=== PATIENT | female | born 1995 | race Caucasian/White ===

== ENCOUNTER 2017-08-01 18:42 | Emergency (ER) | payer BC, MEDICAID, OTHER ==
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
[2017-08-01 19:36] LABS: CHLORIDE,CL 109 mmol/L (98-110); SODIUM,NA 139 mmol/L (136-146)
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
[2017-08-01 21:22] VITALS: BP 114/72
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
--- NOTE | 2017-08-03 13:45 | CT ---
EXAM DATE: 08/01/17 PATIENT'S AGE: 22 Patient: RICO WALTER Facility: [place], [place] Site . Site : 1995 Study: CT Facial [id number] 8:16:48 PM Ordering Physician: Doctor Esteves Final Report: HISTORY: Head and facial injury. TECHNIQUE: Noncontrast head CT. Noncontrast facial bone CT. COMPARISON: No prior. FINDINGS: Head CT: There is no acute intracranial hemorrhage. No acute ischemic infarct. No extra-axial collection or hematoma. No mass effect or midline shift. No hydrocephalus. No acute loss of maxwell-white differentiation. Basilar cisterns are maintained. Mastoid air cells are clear. No acute skull fracture. - Facial bone CT: There is soft tissue swelling along with soft tissue infiltration involving the right cheek and lateral periorbital region. There is no underlying orbital or maxillary fracture. No retrobulbar hematoma. The zygomatic arches are intact. Nasal bones are intact. Mandible is intact. The paranasal sinuses are clear. No upper cervical fracture. IMPRESSION: 1. No acute intracranial injury or disease. 2. Soft tissue swelling involving the right cheek and right lateral periorbital region. 3. No acute facial or orbital fracture. Dictated by Albaro Watson MD @ 08/01/2017 8:28:59 PM Dictated by: Albaro Watson MD @ 08/01/2017 20:29:21 (Electronic Signature) Report Signed by Proxy. [facility]
--- NOTE | 2017-08-03 13:46 | CR ---
EXAM DATE: 08/01/17 PATIENT'S AGE: 22 Patient: RICO WALTER Facility: [place], [place] Site . Site : 1997 Study: XRay ST Neck [id number]/[id number] 8:18:11 PM Ordering Physician: Doctor Esteves Final Report: HISTORY: Neck pain. TECHNIQUE: Two views of the cervical spine. COMPARISON: No prior. FINDINGS: The cervical vertebral body height and intervertebral disc height are maintained. There is no acute cervical fracture or malalignment. No abnormal prevertebral soft tissue swelling. IMPRESSION: No acute fracture or malalignment. Dictated by Albaro Watson MD @ 08/01/2017 8:30:27 PM Dictated by: Albaro Watson MD @ 08/01/2017 20:30:34 (Electronic Signature) Report Signed by Proxy. [facility]
== END 2017-08-01 21:00 | disposition home or self-care (01) ==
LOC: MW.ED 18:42
DX: S00.83XA Contusion of other part of head, initial encounter (principal); Z87.891 Personal history of nicotine dependence; V89.2XXA Person injured in unspecified motor-vehicle accident, traffic, initial encounter
CPT/HCPCS: 36415; 70360; 70450; 70486; 80053; 82150; 83690; 84703; 85025; 99285; G0390; 99283

== ENCOUNTER 2019-05-05 20:52 | Emergency (ER) | payer SELFPAY ==
[2019-05-05 21:00] VITALS: BP 112/73
--- NOTE | 2019-05-05 21:09 | EDM.PDOC ---
ED HPI GENERAL MEDICAL PROBLEM - General Chief Complaint: ENT Problem Stated Complaint: PT HAS EAR INFECTION Time Seen by Provider: 05/05/19 21:08 Source of Information: Reports: Patient History Limitations: Reports: No Limitations - History of Present Illness INITIAL COMMENTS - FREE TEXT/NARRATIVE: HISTORY AND PHYSICAL: History of present illness: Patient is a 23-year-old female presents to the ED today with concern of right ear pain 2-3 days. Patient states she doesn't drink quite often on the weekends. Patient states that she began to notice right ear pain and thought maybe it was her wisdom tooth that is growing in. Patient states she has an appointment tomorrow with the dentist to get her with some teeth evaluated. Patient denies any trauma or injury to the ear. Patient denies any change in hearing of the right ear. Patient denies any health history or any other concerns at this time. Patient denies fever, chills, chest pain, shortness of breath, or cough. Denies headache, neck stiff ness, change in vision, syncope, or near syncope. Denies nausea, vomiting, abdominal pain, diarrhea, constipation, or dysuria. Has not noted any blood in urine or stool. Patient has been eating and drinking appropriately. Review of systems: As per history of present illness and below otherwise all systems reviewed and negative. Past medical history: As per history of present illness and as reviewed below otherwise noncontributory. Surgical history: As per history of present illness and as reviewed below otherwise noncontributory. Social history: See social history for further information Family history: As per history of present illness and as reviewed below otherwise noncontributory. Physical exam: General: Patient is alert, oriented, and in no acute distress. Patient sitting comfortably on exam table. HEENT: Atraumatic, normocephalic, pupils equal and reactive bilaterally, negative for conjunctival pallor or scleral icterus, mucous membranes moist, Left TM is normal, right TM is erythematous and bulging, the right external auditory canal is also erythematous and edematous. Patient has pain with palpation of the right tragus and pulling of the right auricle, negative mastoid tenderness of the right, throat clear, neck supple, nontender, trachea midline. No drooling or trismus noted. No meningeal signs. No hot potato voice noted. Lungs: Clear to auscultation, breath sounds equal bilaterally, chest nontender. Heart: S1S2, regular rate and rhythm without overt murmur Abdomen: Soft, nondistended, nontender. Negative for masses or hepatosplenomegaly. Negative for costovertebral tenderness. Pelvis: Stable nontender. Genitourinary: Deferred. Rectal: Deferred. Skin: Intact, warm, dry. No lesions or rashes noted. Extremities: Atraumatic, negative for cords or calf pain. Neurovascular unremarkable. Neuro: Awake, alert, oriented. Cranial nerves II through XII unremarkable. Cerebellum unremarkable. Motor and sensory unremarkable throughout. Exam nonfocal. Notes: Discussed the importance for follow-up with a primary care provider. Voices understanding and is agreeable to plan of care. Denies any further questions or concerns at this time. Diagnostics: None Therapeutics: Ciprodex Prescription: Amoxicillin, Ciprodex sent home with patient Impression: Acute otitis media, right Acute otitis externa, right Plan: 1. Take medication as prescribed. You can alternate ibuprofen and Tylenol as directed for pain and discomfort. 2. Follow-up with a primary care provider and ENT specialist as discussed. The ENT clinic number provided for you above. Call in the morning for follow up appointment. 3. Return to the ED as needed and as discussed. Definitive disposition and diagnosis as appropriate pending reevaluation and review of above. right ear Pain Score (Numeric/FACES): 10 - Related Data Allergies Allergy/AdvReac Type Severity Reaction Status Date / Time No Known Allergies Allergy Verified 05/05/19 20:54 Home Meds: Home Meds . 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: Musculoskeletal History: Reports: None Neurological History: Reports: None Psychiatric History: Reports: None Endocrine/Metabolic History: Reports: None Hematologic History: Reports: None Immunologic History: Reports: None Oncologic (Cancer) History: Reports: None Dermatologic History: Reports: None - Infectious Disease History Infectious Disease History: Reports: None - Past Surgical History Musculoskeletal Surgical History: Reports: Other (See Below) Social & Family History - Family History Family Medical History: Noncontributory - Tobacco Use Smoking Status *Q: Never Smoker - Recreational Drug Use Recreational Drug Use: No ED ROS GENERAL - Review of Systems Review Of Systems: ROS reveals no pertinent complaints other than HPI. ED EXAM, GENERAL - Physical Exam Exam: See Below (see dictation) Course - Vital Signs Last Recorded V/S: Last Vital Signs Temp 36.9 C 05/05/19 20:55 Pulse 107 H 05/05/19 20:55 Resp 14 05/05/19 20:55 BP 112/73 05/05/19 20:55 Pulse Ox 98 05/05/19 20:55 - Orders/Labs/Meds Orders: Active Orders 24 hr Category Date Time Status Ciprofloxacin/Dexamethasone [Ciprodex Otic Susp] Med 05/05/19 21:19 Once 4 ml EARRT BID ONE Departure - Departure Time of Disposition: 21:26 Disposition: Home, Self-Care 01 Clinical Impression: Acute otitis media Qualifiers: Otitis media type: suppurative Laterality: right Recurrence: not specified as recurrent Spontaneous tympanic membrane rupture: without spontaneous rupture Qualified Code(s): H66.001 - Acute suppurative otitis media without spontaneous rupture of ear drum, right ear Acute otitis externa Qualifiers: Otitis externa type: unspecified type Laterality: right Qualified Code(s): H60.501 - Unspecified acute noninfective otitis externa, right ear - Discharge Information Referrals: PCP,None [Primary Care Provider] - Forms: ED Department Discharge Additional Instructions: The following information is given to patients seen in the emergency department who are being discharged to home. This information is to outline your options for follow-up care. We provide all patients seen in our emergency department with a follow-up referral. The need for follow-up, as well as the timing and circumstances, are variable depending upon the specifics of your emergency department visit. If you don't have a primary care physician on staff, we will provide you with a referral. We always advise you to contact your personal physician following an emergency department visit to inform them of the circumstance of the visit and for follow-up with them and/or the need for any referrals to a consulting specialist. The emergency department will also refer you to a specialist when appropriate. This referral assures that you have the opportunity for follow-up care with a specialist. All of these measure are taken in an effort to provide you with optimal care, which includes your follow-up. Under all circumstances we always encourage you to contact your private physician who remains a resource for coordinating your care. When calling for follow-up care, please make the office aware that this follow-up is from your recent emergency room visit. If for any reason you are refused follow-up, please contact the [facility] Emergency Department at and asked to speak to the emergency department charge nurse. [facility] [address] [place] [id number] [facility] [address] [place] [id number] [facility] Ears, Nose, and Throat Specialist, Dr. Franki Ho [phone] [id number] 1. Take medication as prescribed. You can alternate ibuprofen and Tylenol as directed for pain and discomfort. 2. Follow-up with a primary care provider and ENT specialist as discussed. The ENT clinic number provided for you above. Call in the morning for follow up appointment. 3. Return to the ED as needed and as discussed. - My Orders Last 24 Hours: My Active Orders 05/05/19 21:19 Ciprofloxacin/Dexamethasone [Ciprodex Otic Susp] 4 ml EARRT BID ONE - Assessment/Plan Last 24 Hours: My Active Orders 05/05/19 21:19 Ciprofloxacin/Dexamethasone [Ciprodex Otic Susp] 4 ml EARRT BID ONE
[2019-05-05] MEDS ORDERED: Ciprofloxacin/Dexamethasone 0.3-0.1% Otic Susp 7.5 ML Bottle EARRT ONE ×2 (21:19→21:41)
== END 2019-05-05 21:50 | disposition home or self-care (01) ==
LOC: MW.ED 20:52
DX: H66.001 Acute suppurative otitis media without spontaneous rupture of ear drum, right ear (principal); H60.501 Unspecified acute noninfective otitis externa, right ear
CPT/HCPCS: 99282; A9270; 99283